=== PATIENT | female | born 1940 | race Caucasian/White ===

== ENCOUNTER 2018-04-07 05:56 | Inpatient (IN) | payer OTHER ==
[2018-03-10 16:03] VITALS: BMI 30.7
[2018-04-07] MEDS ORDERED: CELECOXIB 200 MG CAPSULE PO ONE (06:14)
[2018-04-07] MEDS ORDERED: GABAPENTIN 300 MG CAPSULE (FP) PO ONE (06:14)
[2018-04-07] MEDS ORDERED: CEFAZOLIN 1 GM/D5W 1 GRAM/50 ML BAG IVPB ONE (06:14)
[2018-04-07] MEDS ORDERED: TRANEXAMIC ACID 1000 MG/10 ML VIAL IVPUSH ONE (06:14)
[2018-04-07] MEDS ORDERED: VANCOMYCIN 1,000 MG VIAL (RESTRICTED TO ID ONLY) ONE (07:13)
[2018-04-07] MEDS ORDERED: ceFAZolin SODIUM 1 GM VIAL ONE ×2 (07:13→07:17)
[2018-04-07] MEDS ORDERED: SUCCINYLCHOLINE CHLORIDE 200 MG/10 ML VIAL ONE (07:13)
[2018-04-07] MEDS ORDERED: PROPOFOL 20 ML ONE ×5 (07:13)
[2018-04-07] MEDS ORDERED: BUPIVACAINE LIPOSOME/PF (EXPAREL) 266 MG/20 ML VIAL ONE (07:36)
[2018-04-07] MEDS ORDERED: MIDAZOLAM HCL 2 MG/2 ML SINGLE DOSE VIAL ONE (07:36)
--- NOTE | 2018-04-07 07:57 | HP ---
Satellite [facility] - Chief Complaint Chief Complaint: left knee pain - Past Medical History Allergies/Adverse Reactions: Allergies Allergy/AdvReac Type Severity Reaction Status Date / Time No Known Allergies Allergy Verified 03/10/18 15:53 - Current Medications Current Medications: Home Medications Medication Instructions Recorded Aspirin [ASA -] 81 mg PO DAILY 03/10/18 Cholecalciferol (Vitamin D3) 1,000 unit PO WEEKLY 03/10/18 [Vitamin D3 -] Glipizide [Glipizide ER] 10 mg PO DAILY 03/10/18 Levothyroxine [Synthroid -] 75 mcg PO DAILY 03/10/18 Losartan/Hydrochlorothiazide 1 each PO DAILY 03/10/18 [Losartan-Hctz 100-25 mg Tab] Paroxetine HCl [Paxil -] 20 mg PO DAILY 03/10/18 Ramipril 2.5 mg PO DAILY 03/10/18 Satellite Physical Exam - Physical Examination Vital Signs: Vital Signs Period Temp Pulse Resp BP Sys/Linder Pulse Ox Last 24 Hr 97.8 F 60 18 155/70 General Appearance: Well Nourished, Well Developed, Alert & Oriented x3 ENT: Clear Lung: Normal air movement Heart: Regular rate & rhythm Extremities: Other (left knee- + swelling, + ttp, decr rom, nvi xrays show grade 4 tricompartmental djd) Neurological: Intact, Alert, Oriented Satellite Impression/Plan - Impression/Plan Impression: left knee djd Operative Procedure: left alexys tkr Date to be Performed: 04/07/18
[2018-04-07] MEDS ORDERED: VANCOMYCIN 1,000 MG VIAL (RESTRICTED TO ID ONLY) IVPB ONE (09:34)
[2018-04-07] MEDS ORDERED: TRANEXAMIC ACID 1000 MG/10 ML VIAL ONE (09:39)
[2018-04-07] MEDS ORDERED: MAGNESIUM HYDROX 2400MG/30ML ORAL SUSPENSION 30 ML CUP PO PRN (10:00)
[2018-04-07] MEDS ORDERED: RAMIPRIL 2.5 MG CAPSULE (FP) PO SCH (10:00)
[2018-04-07] MEDS ORDERED: ONDANSETRON 4 MG/2 ML VIAL IVPUSH PRN ×2 (10:00→10:37)
[2018-04-07] MEDS ORDERED: MAG HYDROX/AL HYDROX/SIMETH 30 ML UNIT-DOSE CUP PO PRN (10:00)
[2018-04-07] MEDS ORDERED: LACTATED RINGERS SOLUTION 1,000 ML IV SCH (10:00)
[2018-04-07] MEDS ORDERED: PATIENT'S OWN MEDICATION (NON-FORMULARY) (Losartan/Hydrochlorothiazide [Losartan-Hctz 100- PO SCH (10:00)
--- NOTE | 2018-04-07 10:03 | OP ---
Operative Note - Note: Operative Date: 04/07/18 (jani) Pre-Operative Diagnosis: left knee djd Operation: left alexys tkr Post-Operative Diagnosis: Same as Pre-op Surgeon: Cam Montana Alcohol Rubber: Aden Parekh Anesthesiologist/CAREER DEVELOPMENT ASSOCIATE: James Taylor Anesthesia: Spinal, Local Specimens Removed: bone fragments Estimated Blood Loss (mls): 100 Operative Report Dictated: Yes
[2018-04-07] MEDS ORDERED: PROMETHAZINE HCL 25 MG/1 ML VIAL IVPUSH PRN (10:37)
[2018-04-07] MEDS ORDERED: oxyCODONE HCL 5 MG TABLET PO PRN (10:37)
[2018-04-07] MEDS: ACETAMINOPHEN 325 MG TABLET (FP) PO SCH ×4 (11:00→23:34)
[2018-04-07] MEDS: PANTOPRAZOLE 40 MG TABLET (FP) PO SCH (12:16)
[2018-04-07] MEDS: PARoxetine HCL 20 MG TABLET (FP) PO SCH (12:16)
[2018-04-07] MEDS: SENNOSIDES/DOCUSATE COMBO (SENNA PLUS) TABLET (UD) PO SCH ×2 (12:16→21:07)
[2018-04-07] MEDS: MULTIVITAMINS (DAILY MVI) TABLET (FP) PO SCH (12:16)
[2018-04-07] MEDS: INSULIN SLIDING SCALE (NOVOLOG) 1 VIAL SQ SCH ×2 (12:17→17:12)
[2018-04-07] MEDS: CEFAZOLIN 2 GM/D5W 2 GM/50 ML ML IVPB SCH ×2 (15:49→23:34)
[2018-04-07] MEDS: oxyCODONE HCL 5 MG TABLET PO PRN ×2 (15:49→21:07)
[2018-04-07] MEDS ORDERED: INSULIN (NOVOLOG) ASPART 100 UNITS/ML 10ML VIAL ONE (17:04)
--- NOTE | 2018-04-07 18:08 | SPEC ---
DATE OF OPERATION: 04/07/2018 PREOPERATIVE DIAGNOSIS: Degenerative joint disease, left knee. POSTOPERATIVE DIAGNOSIS: Degenerative joint disease, left knee. PROCEDURE: Left total knee replacement with robotic-assisted navigation (Makoplasty). SURGICAL ATTENDING: Cam Montana M.D. WASTEWATER ANALYST: Walter Booth ANESTHESIA: Regional and spinal. CLOSURE: A cemented Triathlon knee system with a 4 femur, 5 tibia, 11 polyethylene, 32 patella, number 1 Vicryl fascia, 0 and 2-0 subcutaneous, 3-0 Monocryl subcuticular with skin glue for skin, 4-0 undyed Vicryl for pin site. ESTIMATED BLOOD LOSS: Less than 100 mL. COMPLICATIONS: None. CONDITION: To recovery room in stable condition. DESCRIPTION OF OPERATIVE PROCEDURE: Patient was taken to the operating room on April 07, 2018. Regional and general anesthesia was administered by the anesthesiologist. IV Kefzol and TXA were administered by the anesthesiologist. Well-padded pneumatic tourniquet was placed on the proximal thigh. The left lower extremity was prepped and draped in the usual sterile fashion. The leg was exsanguinated with an Esmarch bandage, and tourniquet was inflated to 275 mmHg. A 12 to 15-cm longitudinal midline incision was incised while centered over the patella. The dissection was carried down to the level of the extensor mechanism with sufficient flaps made to adequately perform the procedure. A medial parapatellar arthrotomy was then performed. We made a cuff of tissue on the patella for later closure. The patella was inverted, the knee was flexed up. The fat pad was excised. The subperiosteal dissection was on the anteromedial proximal tibia around towards the direction of the MCL. The ACL and the PCL were transected and debrided. The meniscal remnants of the medial and lateral meniscus were debrided and removed. This allowed the knee to be able to "be brought forward." The checkpoints were malleted into the tibia and into the femur. Two threaded pins were drilled anteroposteriorly proximal to the knee through the previous incision, through the anterior cortex, then just engaging the posterior cortex. To these pins was assembled the femoral navigation array. One handbreadth below the tibial tubercle, 2 stab incisions were used to drill 2 threaded pins in parallel fashion into the tibia, again through the anterior cortex and just engaging the posterior cortex. To these pins was fastened the tibial arrays. The knee was then registered with the navigation device with center of rotation of the hip, medial and lateral malleoli, both checkpoints, and multiple points on both the femur and the tibia to ensure excellent registration. The navigation device was directed off the "top of the bubbles" on both the femur and the tibia. The navigation passed within less than 0.5 mm to plan. The knee was then thoroughly inspected to remove all osteophytes both medially, laterally, and on the femur and the tibia, and whatever osteophytes were available for dissection. The knee was then taken to extension and to flexion, and stressed in both varus and valgus to assess flexion gaps. The virtual position of the components on the navigation device were then manipulated to optimize the position and to ensure equal gaps in both flexion and extension, and both medially and laterally. The robot was then brought into the field and was registered. The cuts were then made both on the femur and on the tibia as to plan. All osteophytes posteriorly were then removed as well. The gaps were then measured again in flexion and extension to be equal in both flexion and extension and medial and laterally. The femoral notch was then made, as we were doing a posterior stabilizing component, with the appropriate sized box. Trial reduction of the femur achieved excellent [id number] fit. A tibial baseplate of appropriate polyethylene thickness was "floated in the knee." It was ensured to be in the excellent position by navigation devices and was pinned in place. The knee was taken through a range of motion, and found to have excellent stability throughout flexion and extension. The patella was calibrated for thickness and osteotomized down to the appropriate level. The appropriate lollipop was used to drill the lug holes in the patella and the trial button was applied. The knee was taken through a range of motion and found to have excellent tracking of the patella, and patella from full extension to full flexion. Trial components were removed, the keel was punched and drilled, and a sclerotic bone on the tibia was drilled to help with cement interdigitation. The knee was thoroughly irrigated with the pulse antibiotic escort vehicle driver. The real components were then cemented in using monitored arrangement cement techniques with antibiotic cement, and pressurization and extension. After the cement was hardened, the knee was thoroughly inspected to remove any extra cement. The real polyethylene component was then clipped into place. Range of motion, stability, and tracking were as described earlier. The checkpoints and the pins were removed. The knee was thoroughly irrigated with antibiotic irrigation. Vancomycin powder was placed into the knee for antibiotic prophylaxis. The medial parapatellar arthrotomy was then closed using number 1 Vicryl interrupted suture. After closure of the deep layer, the knee was taken through a range of motion, and found to have excellent stability of the patella with no dislocation and no undue tension on the repair. The subcutaneous was pulse antibiotic irrigated, and was then closed with 2-0 Vicryl, 3-0 Monocryl subcuticular with the skin glue for the skin. The distal tibial pin site was irrigated thoroughly as well and then closed with 4-0 undyed Vicryl. A sterile Aquacel dressing was applied, followed by a Wick dressing. Tourniquet was deflated. Total tourniquet time was approximately 75 minutes. No complications. Patient was awakened from anesthesia and transferred to recovery room in stable condition. Postoperative x-rays revealed excellent position of the components. Christ [id number]
[2018-04-08] MEDS: LEVOTHYROXINE NA 75 MCG TABLET (FP) PO SCH (06:11)
[2018-04-08] MEDS: glipiZIDE-XL 5 MG TAB.ER.24 PO SCH (06:11)
[2018-04-08] MEDS: oxyCODONE HCL 5 MG TABLET PO PRN ×3 (06:12→21:05)
[2018-04-08] MEDS: ACETAMINOPHEN 325 MG TABLET (FP) PO SCH ×3 (06:13→16:05)
[2018-04-08 08:17] LABS: HEMATOCRIT 35.4 % (32.4-45.2); HEMOGLOBIN 11.9 GM/dl (10.7-15.3); MCHC 33.5 g/dl (32.0-36.0); MEAN CELL VOLUME 92.3 fl (80-96); MEAN PLT VOLUME 9.4 fl (7.5-11.1); PLATELET COUNT 146 K/MM3 (134-434); RBC 3.83 M/mm3 (3.60-5.2); RDW 11.9 % (11.6-15.6); WHITE BLOOD COUNT 7.2 K/mm3 (4.0-10.8)
[2018-04-08] MEDS: CEFAZOLIN 2 GM/D5W 2 GM/50 ML ML IVPB SCH (08:28)
[2018-04-08] MEDS: ASPIRIN 325 MG TABLET PO SCH (08:28)
--- NOTE | 2018-04-08 09:13 | PN ---
Progress Note (short form) - Note Progress Note: Ortho Pt seen and examined s/p left alexys tkr pod #1 Selected Entries 04/08/18 06:37 Temperature 98.6 F Pulse Rate 78 Respiratory 19 Rate Blood Pressure 126/48 Laboratory Tests 04/08/18 07:20 WBC 7.2 Hgb 11.9 Hct 35.4 Plt Count 146 dressing c/d/i, calf soft, nt rom 0-50, nvi a/p PT dvt ppx pain control d/c to snf tomorrow if stable
[2018-04-08] MEDS: INSULIN SLIDING SCALE (NOVOLOG) 1 VIAL SQ SCH ×3 (09:45→17:26)
[2018-04-08] MEDS: SENNOSIDES/DOCUSATE COMBO (SENNA PLUS) TABLET (UD) PO SCH ×2 (09:47→21:06)
[2018-04-08] MEDS: LOSARTAN POTASSIUM 50 MG TABLET (FP) PO SCH (09:47)
[2018-04-08] MEDS: PARoxetine HCL 20 MG TABLET (FP) PO SCH (09:47)
[2018-04-08] MEDS: HYDROCHLOROTHIAZIDE 25 MG TABLET (FP) PO SCH (09:47)
[2018-04-08] MEDS: MULTIVITAMINS (DAILY MVI) TABLET (FP) PO SCH (09:48)
[2018-04-08] MEDS: PANTOPRAZOLE 40 MG TABLET (FP) PO SCH (09:48)
[2018-04-08] MEDS: RAMIPRIL 2.5 MG CAPSULE (FP) PO SCH (09:48)
--- NOTE | 2018-04-08 10:05 | PN ---
Progress Note, Physician Chief Complaint: day #1 s/p left TKR - Current Medication List Current Medications: Active Medications Acetaminophen (Tylenol -) 650 mg PO Q6H [facility] Stop: 04/10/18 10:44 Last Admin: 04/08/18 06:13 Dose: 650 mg Al Hydroxide/Mg Hydroxide (Mylanta Oral Suspension -) 30 ml PO Q4H PRN PRN Reason: DYSPEPSIA Aspirin (Asa -) 325 mg PO DAILY@0800 [facility] Last Admin: 04/08/18 08:28 Dose: 325 mg Fentanyl (Sublimaze Injection -) 50 mcg IVPUSH [id number] PRN PRN Reason: PAIN-PACU ORDER X 4 DOSES ONLY Glipizide (Glucotrol Xl -) 10 mg PO DAILY@0700 [facility] Last Admin: 04/08/18 06:11 Dose: 10 mg Hydrochlorothiazide (Hctz -) 25 mg PO DAILY [facility] Last Admin: 04/08/18 09:47 Dose: 25 mg Cefazolin Sodium/Dextrose (Ancef 2 Gm Premixed Ivpb -) 2 gm in 50 mls @ 100 mls /hr IVPB Q8H [facility] Stop: 04/08/18 15:59 Last Admin: 04/08/18 08:28 Dose: 100 mls/hr Insulin Aspart (Novolog Vial Sliding Scale -) 1 vial SQ [facility]; Protocol Last Admin: 04/08/18 09:45 Dose: Not Given Levothyroxine Sodium (Synthroid -) 75 mcg PO DAILY@0700 [facility] Last Admin: 04/08/18 06:11 Dose: 75 mcg Losartan Potassium (Cozaar -) 100 mg PO DAILY [facility] Last Admin: 04/08/18 09:47 Dose: 100 mg Magnesium Hydroxide (Milk Of Magnesia -) 30 ml PO PRN PRN PRN Reason: CONSTIPATION Multivitamins/Minerals/Vitamin C (Tab-A-Vit -) 1 tab PO DAILY [facility] Last Admin: 04/08/18 09:48 Dose: 1 tab Ondansetron HCl (Zofran Injection) 4 mg IVPUSH Q6H PRN PRN Reason: NAUSEA Oxycodone HCl (Roxicodone -) 5 mg PO Q3H PRN PRN Reason: PAIN LEVEL 1-5 Last Admin: 04/07/18 13:16 Dose: 5 mg Oxycodone HCl (Roxicodone -) 10 mg PO Q3H PRN PRN Reason: PAIN LEVEL 6-10 Last Admin: 04/08/18 06:12 Dose: 10 mg Pantoprazole Sodium (Protonix -) 40 mg PO DAILY [facility] Last Admin: 04/08/18 09:48 Dose: 40 mg Paroxetine HCl (Paxil -) 20 mg PO DAILY [facility] Last Admin: 04/08/18 09:47 Dose: 20 mg Ramipril (Altace -) 2.5 mg PO DAILY [facility] Last Admin: 04/08/18 09:48 Dose: 2.5 mg Senna/Docusate Sodium (Pericolace -) 2 tablet PO BID [facility] Last Admin: 04/08/18 09:47 Dose: 2 tablet - Objective Vital Signs: Vital Signs Temperature 98.6 F 04/08/18 06:37 Pulse Rate 84 04/08/18 09:50 Respiratory Rate 18 04/08/18 09:50 Blood Pressure 132/53 04/08/18 09:50 O2 Sat by Pulse Oximetry (%) 97 04/08/18 08:00 Labs: CBC, BMP 04/08/18 07:20 Assessment/Plan doing well s/p spinal and nerve block for total knee replacement. Minimal pain , no complaints
[2018-04-08] MEDS ORDERED: PT OWN MED DRAWER 7, Y5N ONE (10:41)
[2018-04-09 06:15] VITALS: BP 147/56; PULSE 82; TEMP 98.7
[2018-04-09] MEDS: glipiZIDE-XL 5 MG TAB.ER.24 PO SCH (06:31)
[2018-04-09] MEDS: LEVOTHYROXINE NA 75 MCG TABLET (FP) PO SCH (06:33)
[2018-04-09] MEDS: oxyCODONE HCL 5 MG TABLET PO PRN (06:33)
[2018-04-09] MEDS: ASPIRIN 325 MG TABLET PO SCH (07:30)
[2018-04-09 08:19] LABS: HEMATOCRIT 35.3 % (32.4-45.2); MCH 31.5 pg (25.7-33.7); MCHC 34.1 g/dl (32.0-36.0); MEAN CELL VOLUME 92.4 fl (80-96); PLATELET COUNT 154 K/MM3 (134-434); RBC 3.81 M/mm3 (3.60-5.2); RDW 11.9 % (11.6-15.6); WHITE BLOOD COUNT 9.1 K/mm3 (4.0-10.8)
--- NOTE | 2018-04-09 08:20 | PN ---
Progress Note (short form) - Note Progress Note: Ortho Pt seen and examined s/p left alexys tkr pod #2 Selected Entries 04/09/18 06:00 Temperature 98.7 F Pulse Rate 82 Respiratory 18 Rate Blood Pressure 147/56 Laboratory Tests 04/08/18 07:20 WBC 7.2 Hgb 11.9 Hct 35.4 Plt Count 146 dressing c/d/i, calf soft, nt rom 0-50, nvi a/p PT dvt ppx pain control d/c to snf today f/u in 7-10 days
--- NOTE | 2018-04-09 08:21 | DS ---
Physical Examination Vital Signs: Vital Signs Temperature 98.7 F 04/09/18 06:00 Pulse Rate 82 04/09/18 06:00 Respiratory Rate 18 04/09/18 06:00 Blood Pressure 147/56 04/09/18 06:00 O2 Sat by Pulse Oximetry (%) 94 L 04/09/18 07:43 Discharge Summary Reason For Visit: OSTEOARTHRITIS Procedures: Principal: left tkr Hospital Course: admitted for elective left alexys tkr, uneventful post-op, stable for d/c Condition: Good - Instructions Diet, Activity, Other Instructions: Post-op Instructions-Total Knee Replacement Call the office for a follow-up appointment in 1 week - [phone] Aspirin 325mg daily for 6 weeks. Pain medication was sent into your pharmacy. Apply Graduated Compression Stockings (TEDs) to both lower extremities- remove daily for hygiene ONLY Apply Sequential Compression Device (SCDs) to both Lower extremities remove for PT and hygiene ONLY Apply cold packs to affected area for 15 minutes every 2 hours. Physical Therapist will come to your home for the first 5 days. You will be set up with outpatient PT at your first post-operative visit. Patient may ambulate as tolerated-encourage self care (at least every 2-3 hours while awake) with walker or cane Maintain Aquacel (waterproof) dressing to operative wound (will be removed by surgeon at first office visit) Shower with Aquacel dressing in place-if Aquacel integrity compromised, remove and apply dry sterile dressing and notify Orthopedist. DO NOT SHOWER unless Orthopedists approves without Aquacel dressing CONTACT THE OFFICE FOR ANY CHANGE IN YOUR CONDITION (for example-fever greater than 102 degrees, excessive bleeding from operative site, purulent drainage, severe swelling or pain) GO TO THE EMERGENCY ROOM IF THERE IS A MEDICAL EMERGENCY Knee Precautions: * Keep a rolled towel under affected heel while in bed or chair (to keep knee in extension) * Keep affected leg elevated except during mealtimes * DO NOT PLACE PILLOW UNDER AFFECTED KNEE * If you have any questions, please do not hesitate to call the office - [phone]. Referrals: Cam Montana MD [Staff Physician] - Disposition: VNS/HOME HEALTH CARE - Home Medications Comprehensive Discharge Medication List: Ambulatory Orders Cholecalciferol (Vitamin D3) [Vitamin D3 -] 1,000 unit PO WEEKLY 03/10/18 Glipizide [Glipizide ER] 10 mg PO DAILY 03/10/18 Levothyroxine [Synthroid -] 75 mcg PO DAILY 03/10/18 Losartan/Hydrochlorothiazide [Losartan-Hctz 100-25 mg Tab] 1 each PO DAILY 03/10 Paroxetine HCl [Paxil -] 20 mg PO DAILY 03/10/18 Ramipril 2.5 mg PO DAILY 03/10/18 Aspirin [ASA -] 325 mg PO DAILY@0800 tablet 04/07/18 Oxycodone HCl/Acetaminophen [Percocet 5-325 mg Tablet -] 1 - 2 tab PO Q6H #50 tab MDD 8 04/07/18
[2018-04-09] MEDS: INSULIN SLIDING SCALE (NOVOLOG) 1 VIAL SQ SCH ×2 (09:09→11:35)
[2018-04-09] MEDS: SENNOSIDES/DOCUSATE COMBO (SENNA PLUS) TABLET (UD) PO SCH (09:11)
[2018-04-09] MEDS: PANTOPRAZOLE 40 MG TABLET (FP) PO SCH (09:11)
[2018-04-09] MEDS: PARoxetine HCL 20 MG TABLET (FP) PO SCH (09:12)
[2018-04-09] MEDS: MULTIVITAMINS (DAILY MVI) TABLET (FP) PO SCH (09:12)
[2018-04-09] MEDS: LOSARTAN POTASSIUM 50 MG TABLET (FP) PO SCH (09:12)
[2018-04-09] MEDS: RAMIPRIL 2.5 MG CAPSULE (FP) PO SCH (09:13)
[2018-04-09] MEDS: HYDROCHLOROTHIAZIDE 25 MG TABLET (FP) PO SCH (09:13)
[2018-04-09] MEDS ORDERED: PT OWN MED DRAWER 7, Y5N ONE (11:30)
[2018-04-09] MEDS: ACETAMINOPHEN 325 MG TABLET (FP) PO SCH (11:33)
--- NOTE | 2018-04-09 16:32 | PATH ---
Surgical Pathology Report Patient Name: SRINIVASA GAMBINO Med. Rec. #: [id number] /Age/Gender: 1940 (Age: 77) / F Account: [id number] Location: [facility] MED-SURG Taken: 04/07/2018 Received: 04/07/2018 Reported: 04/09/2018 Physicians: Cam Montana M.D. Specimen(s) Received LEFT KNEE BONE Clinical History Left knee osteoarthritis Final Diagnosis LEFT KNEE BONE, RESECTION: DEGENERATIVE JOINT DISEASE, LEFT KNEE. Electronically Signed Neal Suresh M.D. Gross Description Received in formalin labeled "left knee bones," is a 14.0 x 10.0 x 1.5 cm aggregate of multiple portions of bone and soft tissue. The tibial plateau measures 7.0 x 5.0 x 1.4 cm. There are multiple areas of eburnation present, measuring up to 2 cm in greatest dimension. The remaining articular surfaces are syed-yellow and diffusely granular. The underlying trabecular bone is yellow and hard. Rail Detector Car Operator sections are submitted in one cassette, following decalcification. 04/08/201804/08/2018
--- NOTE | 2018-04-10 07:26 | SPEC ---
DATE OF OPERATION: 04/07/2018 PREOPERATIVE DIAGNOSIS: Degenerative joint disease, left knee. POSTOPERATIVE DIAGNOSIS: Degenerative joint disease, left knee. PROCEDURE: Left total knee replacement with robotic-assisted navigation (Makoplasty). SURGICAL ATTENDING: Cam Montana MD SWEEPER DRIVER: VIRGIL Booth ANESTHESIA: Regional and spinal. CLOSURE: A Triathlon cemented knee components with a 4 femur, 5 tibia, 11 polyethylene, 32 patella, number 1 Vicryl fascia, 0 and 2-0 subcutaneous, 3-0 Monocryl subcuticular with skin glue, 4-0 undyed Vicryl for pin site. ESTIMATED BLOOD LOSS: Negligible. TOURNIQUET TIME: Approximately 25 minutes. COMPLICATIONS: None. CONDITION: To recovery room in stable condition. DESCRIPTION OF OPERATIVE PROCEDURE: Patient was taken to the operating room on April 07, 2018. Regional and general anesthesia was administered by the anesthesiologist. IV Kefzol and TXA were administered by the anesthesiologist. Well-padded pneumatic tourniquet was placed on the proximal thigh. The left lower extremity was prepped and draped in the usual sterile fashion. The leg was exsanguinated with an Esmarch bandage, and tourniquet was inflated to 275 mmHg. A 12 to 15-cm longitudinal midline incision was incised while centered over the patella. The dissection was carried down to the level of the extensor mechanism with sufficient flaps made to adequately perform the procedure. A medial parapatellar arthrotomy was then performed. We made a cuff of tissue on the patella for later closure. The patella was inverted, the knee was flexed up. The fat pad was excised. The subperiosteal dissection was on the anteromedial proximal tibia around towards the direction of the MCL. The ACL and the PCL were transected and debrided. The meniscal remnants of the medial and lateral meniscus were debrided and removed. This allowed the knee to be able to "be brought forward." The checkpoints were malleted into the tibia and into the femur. Two threaded pins were drilled anteroposteriorly proximal to the knee through the previous incision, through the anterior cortex, then just engaging the posterior cortex. To these pins was assembled the femoral navigation array. One handbreadth below the tibial tubercle, 2 stab incisions were used to drill 2 threaded pins in parallel fashion into the tibia, again through the anterior cortex and just engaging the posterior cortex. To these pins was fastened the tibial arrays. The knee was then registered with the navigation device with center of rotation of the hip, medial and lateral malleoli, both checkpoints, and multiple points on both the femur and the tibia to ensure excellent registration. The navigation device was directed off the "top of the bubbles" on both the femur and the tibia. The navigation passed within less than 0.5 mm to plan. The knee was then thoroughly inspected to remove all osteophytes both medially, laterally, and on the femur and the tibia, and whatever osteophytes were available for dissection. The knee was then taken to extension and to flexion, and stressed in both varus and valgus to assess flexion gaps. The virtual position of the components on the navigation device were then manipulated to optimize the position and to ensure equal gaps in both flexion and extension, and both medially and laterally. The robot was then brought into the field and was registered. The cuts were then made both on the femur and on the tibia as to plan. All osteophytes posteriorly were then removed as well. The gaps were then measured again in flexion and extension to be equal in both flexion and extension and medial and laterally. The femoral notch was then made, as we were doing a posterior stabilizing component, with the appropriate sized box. Trial reduction of the femur achieved excellent [id number] fit. A tibial baseplate of appropriate polyethylene thickness was "floated in the knee." It was ensured to be in the excellent position by navigation devices and was pinned in place. The knee was taken through a range of motion, and found to have excellent stability throughout flexion and extension. The patella was calibrated for thickness and osteotomized down to the appropriate level. The appropriate lollipop was used to drill the lug holes in the patella and the trial button was applied. The knee was taken through a range of motion and found to have excellent tracking of the patella, and patella from full extension to full flexion. Trial components were removed, the keel was punched and drilled, and a sclerotic bone on the tibia was drilled to help with cement interdigitation. The knee was thoroughly irrigated with the pulse antibiotic elephant tamer. The real components were then cemented in using monitored arrangement cement techniques with antibiotic cement, and pressurization and extension. After the cement was hardened, the knee was thoroughly inspected to remove any extra cement. The real polyethylene component was then clipped into place. Range of motion, stability, and tracking were as described earlier. The checkpoints and the pins were removed. The knee was thoroughly irrigated with antibiotic irrigation. Vancomycin powder was placed into the knee for antibiotic prophylaxis. The medial parapatellar arthrotomy was then closed using number 1 Vicryl interrupted suture. After closure of the deep layer, the knee was taken through a range of motion, and found to have excellent stability of the patella with no dislocation and no undue tension on the repair. The subcutaneous was pulse antibiotic irrigated, and was then closed with 2-0 Vicryl, 3-0 Monocryl subcuticular with the skin glue for the skin. The distal tibial pin site was irrigated thoroughly as well and then closed with 4-0 undyed Vicryl. A sterile Aquacel dressing was applied, followed by a Wick dressing. Tourniquet was deflated. Total tourniquet time was approximately 75 minutes. No complications. Patient was awakened from anesthesia and transferred to recovery room in stable condition. Postoperative x-rays revealed excellent position of the components. Christ [id number]
== END 2018-04-09 12:41 | disposition home health service (06) | DRG 470 ==
LOC: FM/S 05:56
PROVIDERS: ADMIT Orthopaedic Surgery; ATTEND Orthopaedic Surgery
PROC: 0SRD0J9 Replacement of Left Knee Joint with Synthetic Substitute, Cemented, Open Approach (ICD-10-PCS; principal; 2018-04-07 08:00)
DX: M17.12 Unilateral primary osteoarthritis, left knee (principal); I10 Essential (primary) hypertension; E11.9 Type 2 diabetes mellitus without complications
CPT/HCPCS: 36415; 73560-TC-LT-FY; 82962; 85027; 88304-TC; 88311-TC; 94760; 97116-GP; 97162-GP

== ENCOUNTER 2018-09-01 05:56 | Inpatient (IN) | payer OTHER ==
[2018-08-10 12:21] VITALS: BMI 31.1
[2018-09-01] MEDS ORDERED: GABAPENTIN 300 MG CAPSULE (FP) PO ONE (06:31)
[2018-09-01] MEDS ORDERED: oxyCODONE HCL 10 MG SUSTAINED ACTING TABLET PO ONE (06:31)
[2018-09-01] MEDS ORDERED: TRANEXAMIC ACID 1000 MG/10 ML VIAL IVPUSH ONE (06:31)
[2018-09-01] MEDS ORDERED: CEFAZOLIN 2 GM/D5W 2 GM/50 ML ML IVPB ONE (06:31)
[2018-09-01] MEDS ORDERED: CELECOXIB 200 MG CAPSULE PO ONE (06:31)
[2018-09-01] MEDS ORDERED: GABAPENTIN 300 MG CAPSULE (FP) ONE (07:00)
[2018-09-01] MEDS ORDERED: oxyCODONE HCL 10 MG SUSTAINED ACTING TABLET ONE (07:00)
[2018-09-01] MEDS ORDERED: CELECOXIB 200 MG CAPSULE ONE (07:00)
[2018-09-01] MEDS ORDERED: BUPIVACAINE HCL/PF 0.5% (5MG/ML) 10 ML VIAL ONE (07:03)
[2018-09-01] MEDS ORDERED: PROPOFOL 20 ML ONE ×4 (07:09)
[2018-09-01] MEDS ORDERED: ePHEDrine SULFATE 50 MG/1 ML AMPULE ONE (07:09)
[2018-09-01] MEDS ORDERED: SUCCINYLCHOLINE CHLORIDE 200 MG/10 ML VIAL ONE (07:09)
[2018-09-01] MEDS ORDERED: BUPIVACAINE LIPOSOME/PF (EXPAREL) 266 MG/20 ML VIAL ONE (07:31)
[2018-09-01] MEDS ORDERED: MIDAZOLAM HCL 2 MG/2 ML SINGLE DOSE VIAL ONE ×2 (07:31→07:32)
[2018-09-01] MEDS ORDERED: VANCOMYCIN 1,000 MG VIAL (RESTRICTED TO ID ONLY) ONE (07:38)
[2018-09-01] MEDS ORDERED: ceFAZolin SODIUM 1 GM VIAL ONE (07:38)
--- NOTE | 2018-09-01 07:52 | HP ---
Satellite [facility] - Chief Complaint Chief Complaint: right knee pain - Past Medical History Allergies/Adverse Reactions: Allergies Allergy/AdvReac Type Severity Reaction Status Date / Time No Known Allergies Allergy Verified 08/10/18 12:23 - Current Medications Current Medications: Home Medications Medication Instructions Recorded Glipizide [Glipizide ER] 10 mg PO DAILY 03/10/18 Levothyroxine [Synthroid -] 75 mcg PO DAILY 03/10/18 Losartan/Hydrochlorothiazide 1 each PO DAILY 03/10/18 [Losartan-Hctz 100-25 mg Tab] Paroxetine HCl [Paxil -] 20 mg PO DAILY 03/10/18 Ramipril 2.5 mg PO DAILY 03/10/18 Aspirin Coated [Ecotrin -] 81 mg PO DAILY 08/10/18 Ferrous Sulfate [Iron] 325 mg PO DAILY 08/10/18 Satellite Physical Exam - Physical Examination Vital Signs: Vital Signs Period Temp Pulse Resp BP Sys/Linder Pulse Ox Last 24 Hr 98.4 F 70 18 146/78 General Appearance: Well Nourished, Well Developed, Alert & Oriented x3 ENT: Clear Lung: Normal air movement Heart: Regular rate & rhythm Extremities: Other (right knee- + swelling, + ttp, decr rom, nvi xrays show grade 4 tricompartmental djd) Neurological: Intact, Alert, Oriented Satellite Impression/Plan - Impression/Plan Impression: right knee djd Operative Procedure: right alexys tkr Date to be Performed: 09/01/18
[2018-09-01] MEDS ORDERED: ONDANSETRON 4 MG/2 ML VIAL IVPUSH PRN (07:53)
[2018-09-01] MEDS ORDERED: MAG HYDROX/AL HYDROX/SIMETH 30 ML UNIT-DOSE CUP PO PRN (07:53)
[2018-09-01] MEDS ORDERED: MAGNESIUM HYDROX 2400MG/30ML ORAL SUSPENSION 30 ML CUP PO PRN (07:53)
[2018-09-01] MEDS ORDERED: LACTATED RINGERS SOLUTION 1,000 ML IV SCH (08:00)
--- NOTE | 2018-09-01 09:56 | OP ---
Operative Note - Note: Operative Date: 09/01/18 (jani) Pre-Operative Diagnosis: right knee djd Operation: right alexys tkr Post-Operative Diagnosis: Same as Pre-op Surgeon: Cam Montana Internet Marketing Coordinator: Aden Parekh Anesthesiologist/MARKETING ASSISTANT: James Taylor Anesthesia: Spinal, Local Specimens Removed: bone fragments Estimated Blood Loss (mls): 100 Operative Report Dictated: Yes
[2018-09-01] MEDS ORDERED: PATIENT'S OWN MEDICATION (NON-FORMULARY) (Losartan/Hydrochlorothiazide [Losartan-Hctz 100- PO SCH (10:00)
[2018-09-01] MEDS ORDERED: glipiZIDE-XL 10 MG TAB.ER.24 (FP) PO SCH (10:00)
[2018-09-01] MEDS ORDERED: ACETAMINOPHEN 325 MG TABLET (FP) ONE (11:04)
[2018-09-01] MEDS ORDERED: oxyCODONE HCL 5 MG TABLET ONE (11:08)
[2018-09-01] MEDS ORDERED: oxyCODONE HCL 5 MG TABLET PO PRN (12:28)
[2018-09-01] MEDS: FERROUS SO4 325 MG TABLET (FP) PO SCH (15:26)
[2018-09-01] MEDS: SENNOSIDES/DOCUSATE COMBO (SENNA PLUS) TABLET (UD) PO SCH ×2 (15:27→22:11)
[2018-09-01] MEDS: PANTOPRAZOLE 40 MG TABLET (FP) PO SCH (15:27)
[2018-09-01] MEDS: LOSARTAN 50MG/HCTZ 12.5MG 1 TAB (FP) PO SCH (15:27)
[2018-09-01] MEDS: PARoxetine HCL 20 MG TABLET (FP) PO SCH (15:27)
[2018-09-01] MEDS: INSULIN SLIDING SCALE (NOVOLOG) 1 VIAL SQ SCH ×3 (15:28→22:14)
[2018-09-01] MEDS: MULTIVITAMINS (DAILY MVI) TABLET (FP) PO SCH (15:28)
[2018-09-01] MEDS: CEFAZOLIN 2 GM/D5W 2 GM/50 ML ML IVPB SCH (15:29)
[2018-09-01] MEDS ORDERED: INSULIN (NOVOLOG) ASPART 100 UNITS/ML 10ML VIAL ONE ×2 (17:03→22:14)
[2018-09-01] MEDS: ACETAMINOPHEN 325 MG TABLET (FP) PO SCH (17:05)
[2018-09-01] MEDS: oxyCODONE HCL 5 MG TABLET PO PRN (19:10)
--- NOTE | 2018-09-01 20:08 | SPEC ---
DATE OF OPERATION: 09/01/2018 PREOPERATIVE DIAGNOSIS: Degenerative joint disease, right knee. POSTOPERATIVE DIAGNOSIS: Degenerative joint disease, right knee. PROCEDURE: Right total knee replacement with robotic-assisted navigation (Makoplasty). SURGICAL ATTENDING: Cam Montana M.D. DISPATCH CLERK: Walter Booth ANESTHESIA: Regional and spinal. CLOSURE: Triathlon cemented knee system with a 5 femur, 5 tibia, 11 polyethylene, 32 patella, number 1 Vicryl fascia, 0 and 2-0 subcutaneous, 3-0 Monocryl subcuticular with skin glue for skin, 4-0 undyed Vicryl for pin site. ESTIMATED BLOOD LOSS: Less than 100 mL. COMPLICATIONS: None. CONDITION: To recovery room in stable condition. DESCRIPTION OF OPERATIVE PROCEDURE: Patient was taken to the operating room on September 01, 2018. Regional and general anesthesia was administered by the anesthesiologist. IV Kefzol and TXA were administered by the anesthesiologist. Well-padded pneumatic tourniquet was placed on the proximal thigh. The right lower extremity was prepped and draped in the usual sterile fashion. The leg was exsanguinated with an Esmarch bandage, and tourniquet was inflated to 275 mmHg. A 12 to 15-cm longitudinal midline incision was incised while centered over the patella. The dissection was carried down to the level of the extensor mechanism with sufficient flaps made to adequately perform the procedure. A medial parapatellar arthrotomy was then performed. We made a cuff of tissue on the patella for later closure. The patella was inverted, the knee was flexed up. The fat pad was excised. The subperiosteal dissection was on the anteromedial proximal tibia around towards the direction of the MCL. The ACL and the PCL were transected and debrided. The meniscal remnants of the medial and lateral meniscus were debrided and removed. This allowed the knee to be able to "be brought forward." The checkpoints were malleted into the tibia and into the femur. Two threaded pins were drilled anteroposteriorly proximal to the knee through the previous incision, through the anterior cortex, then just engaging the posterior cortex. To these pins was assembled the femoral navigation array. One handbreadth below the tibial tubercle, 2 stab incisions were used to drill 2 threaded pins in parallel fashion into the tibia, again through the anterior cortex and just engaging the posterior cortex. To these pins was fastened the tibial arrays. The knee was then registered with the navigation device with center of rotation of the hip, medial and lateral malleoli, both checkpoints, and multiple points on both the femur and the tibia to ensure excellent registration. The navigation device was directed off the "top of the bubbles" on both the femur and the tibia. The navigation passed within less than 0.5 mm to plan. The knee was then thoroughly inspected to remove all osteophytes both medially, laterally, and on the femur and the tibia, and whatever osteophytes were available for dissection. The knee was then taken to extension and to flexion, and stressed in both varus and valgus to assess flexion gaps. The virtual position of the components on the navigation device were then manipulated to optimize the position and to ensure equal gaps in both flexion and extension, and both medially and laterally. The robot was then brought into the field and was registered. The cuts were then made both on the femur and on the tibia as to plan. All osteophytes posteriorly were then removed as well. The gaps were then measured again in flexion and extension to be equal in both flexion and extension and medial and laterally. The femoral notch was then made, as we were doing a posterior stabilizing component, with the appropriate sized box. Trial reduction of the femur achieved excellent [id number] fit. A tibial baseplate of appropriate polyethylene thickness was "floated in the knee." It was ensured to be in the excellent position by navigation devices and was pinned in place. The knee was taken through a range of motion, and found to have excellent stability throughout flexion and extension. The patella was calibrated for thickness and osteotomized down to the appropriate level. The appropriate lollipop was used to drill the lug holes in the patella and the trial button was applied. The knee was taken through a range of motion and found to have excellent tracking of the patella, and patella from full extension to full flexion. Trial components were removed, the keel was punched and drilled, and a sclerotic bone on the tibia was drilled to help with cement interdigitation. The knee was thoroughly irrigated with the pulse antibiotic radiation technician. The real components were then cemented in using monitored arrangement cement techniques with antibiotic cement, and pressurization and extension. After the cement was hardened, the knee was thoroughly inspected to remove any extra cement. The real polyethylene component was then clipped into place. Range of motion, stability, and tracking were as described earlier. The checkpoints and the pins were removed. The knee was thoroughly irrigated with antibiotic irrigation. Vancomycin powder was placed into the knee for antibiotic prophylaxis. The medial parapatellar arthrotomy was then closed using number 1 Vicryl interrupted suture. After closure of the deep layer, the knee was taken through a range of motion, and found to have excellent stability of the patella with no dislocation and no undue tension on the repair. The subcutaneous was pulse antibiotic irrigated, and was then closed with 2-0 Vicryl, 3-0 Monocryl subcuticular with the skin glue for the skin. The distal tibial pin site was irrigated thoroughly as well and then closed with 4-0 undyed Vicryl. A sterile Aquacel dressing was applied, followed by a Wick dressing. Tourniquet was deflated. Total tourniquet time was approximately 75 minutes. No complications. Patient was awakened from anesthesia and transferred to recovery room in stable condition. Postoperative x-rays revealed excellent position of the components. Christ TODD/[id number]
[2018-09-01] MEDS: GABAPENTIN 300 MG CAPSULE (FP) PO SCH (22:11)
[2018-09-02] MEDS: CEFAZOLIN 2 GM/D5W 2 GM/50 ML ML IVPB SCH (00:55)
[2018-09-02] MEDS: ACETAMINOPHEN 325 MG TABLET (FP) PO SCH ×4 (00:58→18:12)
[2018-09-02] MEDS: oxyCODONE HCL 5 MG TABLET PO PRN ×3 (05:38→16:33)
[2018-09-02] MEDS: glipiZIDE-XL 5 MG TAB.ER.24 PO SCH (06:28)
[2018-09-02] MEDS: INSULIN SLIDING SCALE (NOVOLOG) 1 VIAL SQ SCH ×4 (06:30→21:34)
[2018-09-02] MEDS: LEVOTHYROXINE NA 75 MCG TABLET (FP) PO SCH (06:30)
[2018-09-02 07:50] LABS: HEMOGLOBIN 11.9 GM/dl (10.7-15.3); MCH 31.3 pg (25.7-33.7); MCHC 34.1 g/dl (32.0-36.0); MEAN CELL VOLUME 91.7 fl (80-96); MEAN PLT VOLUME 9.6 fl (7.5-11.1); PLATELET COUNT 151 K/MM3 (134-434); RBC 3.81 M/mm3 (3.60-5.2); RDW 12.1 % (11.6-15.6); WHITE BLOOD COUNT 6.4 K/mm3 (4.0-10.8)
--- NOTE | 2018-09-02 10:22 | PN ---
Progress Note (short form) - Note Progress Note: Ortho Pt seen and examined s/p right alexys tkr pod #1 Selected Entries 09/02/18 09:30 Temperature 98.2 F Pulse Rate 87 Respiratory 19 Rate Blood Pressure 153/51 L Laboratory Tests 09/02/18 07:00 WBC 6.4 Hgb 11.9 Hct 35.0 Plt Count 151 dressing c/d/i, calf soft, nt rom 0-30 nvi a/p PT dvt ppx pain control d/c planning to snf
--- NOTE | 2018-09-02 10:23 | ED.PROV ---
Physicial Exam I saw and examined the patient. - Vital Signs Last Vital Signs Temp Pulse Resp BP Pulse Ox 98.2 F 87 19 153/51 L 95 09/02/18 09:30 09/02/18 09:30 09/02/18 09:30 09/02/18 09:30 09/02/18 06:37 - Physical Exam Reason for Response: 09/02/18 10:23 Called to see patient who fell in the bathroom. Patient states that after she arose from the toilet, she felt her legs give way, fell against the edge of a door. Did not fall to the ground. There was no loss of consciousness. She regained her equilibrium immediately. Denies any pain or injury to the head neck chest abdomen spine pelvis or extremities. Specifically, she did not injure her right knee, which was recently operated upon. Physical exam reveals a patient who is alert and oriented 3, well-developed well-nourished, in no acute distress, cheerful and cooperative Vital signs are normal Head is atraumatic. There is no sign of abrasion, laceration, contusion, hematoma, or other injury PERRLA, fundi benign, ENT clear Neck without tenderness or deformity, full range of motion without pain. No bruits masses or nodes Lungs clear to P&A. Full breath sounds bilaterally. No chest wall or rib cage tenderness or deformity CV regular without murmur rub or gallop pulses full and symmetric no JVD or edema no bruits Abdomen soft nontender without mass or organomegaly. No CVAT. Pelvis and spine without tenderness or deformity. No sign of injury or inflammation. Neurological C2 to 12 intact. Strength full and symmetric, except for lack of cooperation in assessing the strength of the right lower leg distal to the knee surgery due to the recent surgery and subsequent pain and limited motility. No other focal sensory or motor deficits. Patient is able to partially bear weight. Impression: Probable vasovagal near syncope. No sign of significant injury. Follow-up protocol was initiated by the nursing staff which will include head CT and x-ray of the right knee. Patient's attending Dr. Montana will be notified Plan: As above. Further evaluation if further symptoms develop..
[2018-09-02] MEDS: MULTIVITAMINS (DAILY MVI) TABLET (FP) PO SCH (11:43)
[2018-09-02] MEDS: LOSARTAN 50MG/HCTZ 12.5MG 1 TAB (FP) PO SCH (11:44)
[2018-09-02] MEDS: PANTOPRAZOLE 40 MG TABLET (FP) PO SCH (11:44)
[2018-09-02] MEDS: ASPIRIN 325 MG TABLET PO SCH (11:44)
[2018-09-02] MEDS: PARoxetine HCL 20 MG TABLET (FP) PO SCH (11:45)
[2018-09-02] MEDS: FERROUS SO4 325 MG TABLET (FP) PO SCH (11:45)
[2018-09-02] MEDS: GABAPENTIN 300 MG CAPSULE (FP) PO SCH ×2 (11:46→21:33)
[2018-09-02] MEDS: SENNOSIDES/DOCUSATE COMBO (SENNA PLUS) TABLET (UD) PO SCH ×2 (11:46→21:32)
[2018-09-02] MEDS: RAMIPRIL 2.5 MG CAPSULE (FP) PO SCH (11:46)
--- NOTE | 2018-09-02 14:58 | PN ---
Progress Note (short form) - Note Progress Note: POD #1 - s/p right total knee replacement makoplasty. VSS. Pt. doing well, just completed rehab. No complaints. Good pain control. No apparent anesthetic complications noted. Continue current care.
[2018-09-03] MEDS: ACETAMINOPHEN 325 MG TABLET (FP) PO SCH ×3 (00:06→15:10)
[2018-09-03] MEDS: LEVOTHYROXINE NA 75 MCG TABLET (FP) PO SCH (06:41)
[2018-09-03] MEDS: INSULIN SLIDING SCALE (NOVOLOG) 1 VIAL SQ SCH ×2 (06:42→15:10)
[2018-09-03] MEDS: glipiZIDE-XL 5 MG TAB.ER.24 PO SCH (06:42)
[2018-09-03 07:43] LABS: HEMATOCRIT 34.1 % (32.4-45.2); HEMOGLOBIN 11.9 GM/dl (10.7-15.3); MCH 31.8 pg (25.7-33.7); MEAN CELL VOLUME 90.8 fl (80-96); MEAN PLT VOLUME 9.6 fl (7.5-11.1); PLATELET COUNT 138 K/MM3 (134-434); RBC 3.75 M/mm3 (3.60-5.2); RDW 12.1 % (11.6-15.6)
--- NOTE | 2018-09-03 08:49 | PN ---
Progress Note (short form) - Note Progress Note: Ortho Pt seen and examined s/p right alexys tkr pod #2 Selected Entries 09/03/18 06:00 Temperature 98.7 F Pulse Rate 79 Respiratory 19 Rate Blood Pressure 144/77 Laboratory Tests 09/03/18 07:00 WBC 8.0 Hgb 11.9 Hct 34.1 Plt Count 138 dressing c/d/i, calf soft, nt rom 0-60 nvi a/p PT dvt ppx pain control d/c planning to snf
[2018-09-03] MEDS: LOSARTAN 50MG/HCTZ 12.5MG 1 TAB (FP) PO SCH (10:51)
[2018-09-03] MEDS: SENNOSIDES/DOCUSATE COMBO (SENNA PLUS) TABLET (UD) PO SCH (10:51)
[2018-09-03] MEDS: ASPIRIN 325 MG TABLET PO SCH (10:51)
[2018-09-03] MEDS: PANTOPRAZOLE 40 MG TABLET (FP) PO SCH (10:51)
[2018-09-03] MEDS: MULTIVITAMINS (DAILY MVI) TABLET (FP) PO SCH (10:52)
[2018-09-03] MEDS: PARoxetine HCL 20 MG TABLET (FP) PO SCH (10:52)
[2018-09-03] MEDS: oxyCODONE HCL 5 MG TABLET PO PRN (10:52)
[2018-09-03] MEDS: RAMIPRIL 2.5 MG CAPSULE (FP) PO SCH (10:52)
[2018-09-03] MEDS: GABAPENTIN 300 MG CAPSULE (FP) PO SCH (10:53)
[2018-09-03] MEDS: FERROUS SO4 325 MG TABLET (FP) PO SCH (10:53)
[2018-09-03 14:19] VITALS: BP 139/48; PULSE 78; TEMP 100
[2018-09-03] MEDS ORDERED: INSULIN (NOVOLOG) ASPART 100 UNITS/ML 10ML VIAL ONE (15:08)
--- NOTE | 2018-09-03 15:29 | DS ---
Physical Examination Vital Signs: Vital Signs Temperature 100.0 F H 09/03/18 14:18 Pulse Rate 78 09/03/18 14:18 Respiratory Rate 16 09/03/18 14:18 Blood Pressure 139/48 L 09/03/18 14:18 O2 Sat by Pulse Oximetry (%) 96 09/03/18 14:18 Labs: CBC, BMP 09/03/18 07:00 Discharge Summary Reason For Visit: OSTEOARTHRITIS Procedures: Principal: right alexys tkr Hospital Course: admitted for elective right alexys tkr, had minor fall during stay, CT of head and xrays neg, pt stable for d/c to SNF Condition: Good - Instructions Diet, Activity, Other Instructions: Post-op Instructions-Total Knee Replacement Call the office for a follow-up appointment in 1 week - [phone] Aspirin 325mg daily for 6 weeks. Pain medication was sent into your pharmacy. Apply Graduated Compression Stockings (TEDs) to both lower extremities- remove daily for hygiene ONLY Apply Sequential Compression Device (SCDs) to both Lower extremities remove for PT and hygiene ONLY Apply cold packs to affected area for 15 minutes every 2 hours. Physical Therapist will come to your home for the first 5 days. You will be set up with outpatient PT at your first post-operative visit. Patient may ambulate as tolerated-encourage self care (at least every 2-3 hours while awake) with walker or cane Maintain Aquacel (waterproof) dressing to operative wound (will be removed by surgeon at first office visit) Shower with Aquacel dressing in place-if Aquacel integrity compromised, remove and apply dry sterile dressing and notify Orthopedist. DO NOT SHOWER unless Orthopedists approves without Aquacel dressing CONTACT THE OFFICE FOR ANY CHANGE IN YOUR CONDITION (for example-fever greater than 102 degrees, excessive bleeding from operative site, purulent drainage, severe swelling or pain) GO TO THE EMERGENCY ROOM IF THERE IS A MEDICAL EMERGENCY Knee Precautions: * Keep a rolled towel under affected heel while in bed or chair (to keep knee in extension) * Keep affected leg elevated except during mealtimes * DO NOT PLACE PILLOW UNDER AFFECTED KNEE * If you have any questions, please do not hesitate to call the office - . Referrals: Cam Montana MD [Staff Physician] - Disposition: VNS/HOME HEALTH CARE - Home Medications Comprehensive Discharge Medication List: Ambulatory Orders Glipizide [Glipizide ER] 10 mg PO DAILY 03/10/18 Levothyroxine [Synthroid -] 75 mcg PO DAILY 03/10/18 Losartan/Hydrochlorothiazide [Losartan-Hctz 100-25 mg Tab] 1 each PO DAILY 03/10 Paroxetine HCl [Paxil -] 20 mg PO DAILY 03/10/18 Ramipril 2.5 mg PO DAILY 03/10/18 Ferrous Sulfate [Iron] 325 mg PO DAILY 08/10/18 Aspirin [ASA -] 325 mg PO DAILY@0800 tablet 09/01/18 Oxycodone HCl/Acetaminophen [Percocet 5-325 mg Tablet -] 1 - 2 tab PO Q6H #50 tab MDD 8 09/02/18
--- NOTE | 2018-09-04 17:05 | PATH ---
Surgical Pathology Report Patient Name: SRINIVASA GAMBINO Med. Rec. #: [id number] /Age/Gender: 1940 (Age: 78) / F Account: [id number] Location: [facility] MED-SURG Taken: 09/01/2018 Received: 09/01/2018 Reported: 09/04/2018 Physicians: Cam Montana M.D. Specimen(s) Received RIGHT KNEE BONE Clinical History Right knee osteoarthritis Final Diagnosis BONE, RIGHT KNEE, TOTAL KNEE REPLACEMENT: DEGENERATIVE JOINT DISEASE. Electronically Signed Justina Ramachandran M.D. Gross Description Received in formalin labeled "bones right knee," is an 11.0 x 9.0 x 2.3 cm aggregate of multiple portions of bone and soft tissue. The tibial plateau measures 7.3 x 4.8 x 1.5 cm. There is a 1.1 cm greatest dimension area of eburnation present. The remaining articular surfaces are syed-yellow and diffusely granular. The underlying trabecular bone is yellow and hard. Teacher Tutor sections are submitted in one cassette, following decalcification. /09/03/2018 [facility]09/03/2018
== END 2018-09-03 16:21 | DRG 470 ==
LOC: FM/S 05:56
PROVIDERS: ADMIT Orthopaedic Surgery; ATTEND Orthopaedic Surgery
PROC: 8E0Y0CZ Robotic Assisted Procedure of Lower Extremity, Open Approach (ICD-10-PCS; 2018-09-01)
PROC: 0SRC0J9 Replacement of Right Knee Joint with Synthetic Substitute, Cemented, Open Approach (ICD-10-PCS; principal; 2018-09-01 08:32)
DX: M17.11 Unilateral primary osteoarthritis, right knee (principal)
CPT/HCPCS: 36415; 70450-TC; 73560-TC-RT-FY; 82962; 85027; 88304-TC; 88311-TC; 94760; 97116-GP; 97163-GP

== ENCOUNTER 2024-08-17 06:12 | Day surgery (SDC) | payer OTHER ==
[2024-08-17 06:55] VITALS: BMI 29.9
[2024-08-17] MEDS ORDERED: TETRACAINE 0.5% OPHTH SOLN 2 ML BOTTLE ONE (07:17)
[2024-08-17] MEDS ORDERED: THROMBIN (BOVINE) 5,000 UNIT VIAL TP ONE (07:17)
[2024-08-17] MEDS ORDERED: POVIDONE-IODINE 5% OPHTHALMIC PREP 30 ML SOLUTION ONE (07:17)
[2024-08-17] MEDS ORDERED: LIDOCAINE 1%/EPI 1:100000 (20 ML MULTI DOSE VIAL) ONE (07:17)
[2024-08-17] MEDS ORDERED: OXYMETAZOLINE 0.05% NASAL SOLUTION 15 ML BOTTLE NS ONE (07:17)
[2024-08-17] MEDS ORDERED: ceFAZolin SODIUM 1 GM VIAL ONE (07:17)
[2024-08-17] MEDS ORDERED: ERYTHROMYCIN 0.5% OPHTHALMIC OINTMENT 3.5 GM TUBE ONE (07:17)
[2024-08-17] MEDS ORDERED: BUPIVACAINE HCL/PF 0.5% (5MG/ML) 10 ML VIAL ONE (07:17)
[2024-08-17] MEDS ORDERED: PROPOFOL 20 ML ONE (07:32)
[2024-08-17] MEDS ORDERED: ONDANSETRON 4 MG/2 ML VIAL ONE (07:32)
[2024-08-17] MEDS ORDERED: KETOROLAC TROMETHAMINE 30 MG/1 ML VIAL ONE (07:32)
[2024-08-17] MEDS ORDERED: MIDAZOLAM HCL 2 MG/2 ML SINGLE DOSE VIAL ONE (07:32)
[2024-08-17] MEDS ORDERED: ETOMIDATE 20 MG/10 ML VIAL IVPUSH ONE (07:32)
[2024-08-17] MEDS ORDERED: LACTATED RINGERS SOLUTION 1,000 ML IV SCH (09:45)
[2024-08-17 10:07] VITALS: RESP 16
[2024-08-17 10:55] VITALS: TEMP 96.9
[2024-08-17 11:27] VITALS: BP 150/50; PULSE 61
== END 2024-08-17 11:15 | disposition home or self-care (01) ==
LOC: FASU 06:12
PROVIDERS: ATTEND Ophthalmology
PROC: 08BY0ZZ Excision of Left Lacrimal Duct, Open Approach (ICD-10-PCS; principal; 2024-08-17 08:09)
DX: H04.552 Acquired stenosis of left nasolacrimal duct (principal)
CPT/HCPCS: 82962; 88304-TC; 94760